=== PATIENT | male | born 1975 | race American Indian/Alaskan Native ===

== ENCOUNTER 2018-07-27 12:11 | Emergency (ER) | payer BC ==
[2018-07-27] MEDS ORDERED: IBUPROFEN PO ONE ×2 (12:25→12:28)
--- NOTE | 2018-07-27 12:26 | Emergency Department Report ---
Chief Complaint: Chest Pain Stated Complaint: CHEST PAIN Time Seen by Provider: 07/27/18 12:23 - HPI History of Present Illness: l sided sharp cp worse with breathing no n/v/d no trauma Chest congestion last pm, took nyquil temp in triage motrin given pmh none psh none rx none cig etoh occ no drugs mom a/w dad AMI dec 49 y age MSE COMPLETED MSE screening note: Focused history and physical exam performed. Due to findings the following was ordered: ED Disposition for MSE Condition: Stable
[2018-07-27] MEDS ORDERED: BENADRYL PO ONE (13:48)
--- NOTE | 2018-07-27 14:18 | XRay Report ---
PROCEDURE: XR CHEST ROUTINE 2V TECHNIQUE: Chest radiograph, PA and lateral views. HISTORY: Chest Pain COMPARISONS: None currently available. FINDINGS: Cardiac silhouette is within normal limits. Ill-defined opacity in the left suprahilar region. No pneumothorax or effusion. Right lung is clear. There are no suspicious osseous lesions. IMPRESSION: * Suspect left pneumonia. Differential diagnosis includes aspiration and mass. This document is electronically signed by Lele Garcia MD., July 27 2018 02:16:40 PM ET
[2018-07-27 14:22] LABS: Basophils % (Auto) 0.3 % (0.0-1.8); Eosinophils % (Auto) 0.4 % (0.0-4.3); Hemoglobin 14.2 gm/dl (11.8-15.2); Lymphocytes # (Auto) 0.9 K/mm3 (1.2-5.4); Lymphocytes % (Auto) 8.1 % (13.4-35.0); Mean Corpuscular HGB Conc 35 % (32-34); Mean Corpuscular Volume 100 fl (84-94); Monocytes % (Auto) 9.2 % (0.0-7.3); Platelet Count 357 K/mm3 (140-440); Red Blood Count 4.09 M/mm3 (3.65-5.03)
[2018-07-27] MEDS ORDERED: SOLU-Medrol IV ONE (14:31)
[2018-07-27] MEDS ORDERED: BENADRYL IV ONE (14:31)
[2018-07-27] MEDS ORDERED: NACL 0.9% 1000 ML 1,000 ML IV ONE (14:31)
[2018-07-27] MEDS ORDERED: PEPCID IV ONE (14:32)
[2018-07-27 14:35] LABS: BUN/Creatinine Ratio 8; Blood Urea Nitrogen 10 mg/dL (9-20); Calcium 9.4 mg/dL (8.4-10.2)
[2018-07-27 14:36] LABS: Hemolysis Index 30
--- NOTE | 2018-07-27 14:36 | Emergency Department Report ---
ED Allergic Reaction HPI - General Chief complaint: Chest Pain Stated complaint: CHEST PAIN Time Seen by Provider: 07/27/18 12:23 Source: patient Mode of arrival: Ambulatory Limitations: No Limitations - History of Present Illness Initial Comments: Patient is 43 years old male with no significant past medical history. Patient presented to the ER complaining of cough and chest pain and for the last 2-3 days. While in triage patient found to have a fever and patient was given ibuprofen. Patient started to have generalized rash, maculopapular associated with itching and swelling on his face. Patient stated that he does not know if he is allergic to ibuprofen or not. Patient denied any difficulty swallowing or difficulty breathing. MD Complaint: allergic reaction, hives, facial swelling -: Sudden Exposure: medication Symptoms: rash, itching, facial swelling Severity: moderate - Related Data Allergies Allergy/AdvReac Type Severity Reaction Status Date / Time No Known Allergies Allergy Verified 07/27/18 12:27 ED Review of Systems ROS: Stated complaint: CHEST PAIN Other details as noted in HPI Comment: All other systems reviewed and negative Constitutional: denies: chills, fever Respiratory: cough. denies: shortness of breath, SOB with exertion Cardiovascular: denies: chest pain, palpitations, dyspnea on exertion Gastrointestinal: denies: abdominal pain, nausea, vomiting, diarrhea, constipation, hematemesis, melena, hematochezia Musculoskeletal: denies: back pain Skin: rash ED Past Medical Hx - Past Medical History Previous Medical History?: No - Surgical History Past Surgical History?: No - Social History Smoking Status: Current Every Day Smoker Substance Use Type: Alcohol ED Physical Exam - General Limitations: No Limitations General appearance: alert, in no apparent distress, anxious - Head Head exam: Present: atraumatic, normocephalic, normal inspection - Eye Eye exam: Present: normal appearance, PERRL - ENT ENT exam: Present: normal exam, normal orophraynx, mucous membranes moist - Neck Neck exam: Present: normal inspection, full ROM. Absent: tenderness, meningismus, lymphadenopathy, thyromegaly - Respiratory Respiratory exam: Present: normal lung sounds bilaterally. Absent: respiratory distress, wheezes, rales, rhonchi, stridor, chest wall tenderness, accessory m uscle use, decreased breath sounds, prolonged expiratory - Cardiovascular Cardiovascular Exam: Present: regular rate, normal rhythm, normal heart sounds - GI/Abdominal GI/Abdominal exam: Present: soft, normal bowel sounds. Absent: distended, tenderness, guarding, rebound, rigid, organomegaly, mass, bruit, pulsatile mass - Back Exam Back exam: Present: normal inspection, full ROM. Absent: tenderness, CVA tenderness (R), CVA tenderness (L), muscle spasm, paraspinal tenderness, v ertebral tenderness - Neurological Exam Neurological exam: Present: alert, oriented X3, CN II-XII intact, normal gait - Skin Skin exam: Present: warm, intact, rash ED Course Vital Signs 07/27/18 07/27/18 07/27/18 12:23 12:34 15:47 Temperature 100.8 F H 98.2 F Pulse Rate 86 77 Respiratory 16 18 16 Rate Blood Pressure 100/70 Blood Pressure 117/88 [Right] O2 Sat by Pulse 98 98 Oximetry ED Medical Decision Making - Lab Data Result diagrams: 07/27/18 14:00 07/27/18 14:00 - Radiology Data Radiology results: report reviewed Referring Physician: DARRYL FAUSTIN Patient Name: DAYANA ZIEGLER Date of : 1975 Sex: Male Report Date: 2018-07-27 Report Status: [place] [address] XRay Report Signed Patient: DAYANA ZIEGLER MR#: [id number] 150 : 1975 Acct:[id number] Age/Sex: 43 / M ADM Date: 07/27/18 Loc: ED Attending Dr: Ordering Physician: DARRYL FAUSTIN Date of Service: 07/27/18 Procedure(s): XR chest routine 2V Accession Number(s): [id number] cc: DARRYL FAUSTIN Fluoro Time In Minutes: PROCEDURE: XR CHEST ROUTINE 2V TECHNIQUE: Chest radiograph, PA and lateral views. HISTORY: Chest Pain COMPARISONS: None currently available. FINDINGS: Cardiac silhouette is within normal limits. Ill-defined opacity in the left suprahilar region. No pneumothorax or effusion. Right lung is clear. There are no suspicious osseous lesions. IMPRESSION: * Suspect left pneumonia. Differential diagnosis includes aspiration and mass. This document is electronically signed by Lele Hurst MD., July 27 2018 02:16:40 PM ET Transcribed By: TYM Dictated By: LELE HURST MD Electronically Authenticated By: LELE HURST MD Signed Date/Time: 07/27/18 1418 DD/ TD/TT: 07/27/18 1245 - Medical Decision Making Patient is 43 years old male with no significant past medical history. Patient presented to the ER complaining of cough and chest pain and for the last 2-3 days. While in triage patient found to have a fever and patient was given ibuprofen. Patient started to have generalized rash, maculopapular associated with itching and swelling on his face. Patient stated that he does not know if he is allergic to ibuprofen or not. Patient denied any difficulty swallowing or difficulty breathing. Patient stated that he is feeling much better. Rash is almost resolved. Patient received IV Benadryl, IV Solu-Medrol, IV Pepcid. Patient also found to have left lower lobe pneumonia for which patient received 1 g of Rocephin and Zithromax in the ER. Patient will be discharged on Zithromax. Patient advised to follow-up with his primary care physician in the next 2-3 days and to return to the ER if symptoms are not improved. Critical care attestation.: If time is entered above; I have spent that time in minutes in the direct care of this critically ill patient, excluding procedure time. ED Disposition Clinical Impression: Pneumonia, Acute allergic reaction Disposition: DC-01 TO HOME OR SELFCARE Is pt being admited?: No Condition: Stable Instructions: Community-acquired Pneumonia (ED), Allergies (ED) Referrals: SARAH LO MD [Primary Care Provider] - 3-5 Days
[2018-07-27 14:40] LABS: Alanine Aminotransferase < 5 units/L (7-56)
[2018-07-27] MEDS ORDERED: ROCEPHIN/NS 1 GM/50 ML 1 GM/50 ML BAG IV ONE (15:54)
[2018-07-27] MEDS ORDERED: ZITHROMAX 500 MG in NACL 0.9% 250ML 250 ML IV ONE (16:00)
[2018-07-27 16:13] LABS: Bilirubin,Urine NEG (Negative); Blood,Urine NEG (Negative); Color,Urine Yellow (Yellow); Mucus,Urine 1+ /HPF; Protein,Urine <15 mg/dL mg/dL (Negative)
[2018-07-27 18:17] VITALS: BP 119/82
== END 2018-07-27 18:00 | disposition home or self-care (01) ==
LOC: ED 12:11
DX: J18.9 Pneumonia, unspecified organism (principal); F17.200 Nicotine dependence, unspecified, uncomplicated
CPT/HCPCS: 36415; 71046; 80053; 81001; 84484; 85025; 93005; 93010; 96365; 96367; 96375; 99284; J0456; J0696; J1200; J2930; J7030; J7050

== ENCOUNTER 2019-07-21 23:38 | Emergency (ER) | payer BC ==
[2019-07-22] MEDS ORDERED: TETANUS,DIPH,PERTUSS(ACELL) VACCINE 0.5 ML SYRINGE IM ONE ×2 (00:01→02:41)
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
[2019-07-22 00:14] LABS: Hematocrit 42.8 % (35.5-45.6); Mean Corpuscular HGB Conc 35 % (32-34); Mean Corpuscular Volume 99 fl (84-94); Platelet Count 293 K/mm3 (140-440); Red Blood Count 4.31 M/mm3 (3.65-5.03); Red Cell Distribution Width 13.4 % (13.2-15.2)
[2019-07-22 00:38] LABS: Alanine Aminotransferase 32 units/L (7-56); Albumin 4.8 g/dL (3.9-5); BUN/Creatinine Ratio 13; Blood Urea Nitrogen 15 mg/dL (9-20); Calcium 9.7 mg/dL (8.4-10.2); Hemolysis Index 12
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
[2019-07-22 02:35] VITALS: BP 146/91
== END 2019-07-22 03:03 ==
LOC: ED 23:38
DX: S02.2XXA Fracture of nasal bones, initial encounter for closed fracture (principal); S00.83XA Contusion of other part of head, initial encounter; F10.920 Alcohol use, unspecified with intoxication, uncomplicated; F17.200 Nicotine dependence, unspecified, uncomplicated; Z79.899 Other long term (current) drug therapy; Y04.2XXA Assault by strike against or bumped into by another person, initial encounter; Y93.89 Activity, other specified; Y92.89 Other specified places as the place of occurrence of the external cause; Y99.8 Other external cause status
CPT/HCPCS: 36415; 70450; 70486; 72125; 80053; 80320; 85027; 90471; 90715; G0480